=== PATIENT | female | born 1965 | race Caucasian/White ===

== ENCOUNTER 2021-08-19 12:53 | Outpatient (CLI) | payer OTHER | END 2021-08-19 12:54 | disposition home or self-care (01) | LOC: BICCT 12:53 | PROVIDERS: ATTEND Family Medicine | DX: Z12.2 Encounter for screening for malignant neoplasm of respiratory organs (principal); Z87.891 Personal history of nicotine dependence | CPT/HCPCS: 71271 ==

== ENCOUNTER 2023-02-25 13:35 | Outpatient (CLI) | payer OTHER | END 2023-02-25 13:36 | disposition home or self-care (01) | LOC: CT 13:35 | PROVIDERS: ATTEND Family Medicine | DX: F17.211 Nicotine dependence, cigarettes, in remission (principal) | CPT/HCPCS: 71271 ==